=== PATIENT | male | born 1995 | race Caucasian/White ===

== ENCOUNTER 2018-04-16 09:23 | Emergency (ER) | payer SELFPAY ==
[~2018-04-16] VITALS: Ht 167.6 cm; Wt 77.3 kg
[2018-04-16 09:28] VITALS: Ht 167.6 cm; Wt 77.3 kg
[2018-04-16 10:05] LABS: BASOPHILS 0.2 % (0-2); EOSINOPHILS 0.2 % (0-7); HEMOGLOBIN 16.9 g/dL (13.5-17.5); IMMATURE GRANULOCYTES 0.2 % (0-5); LYMPHOCYTES 19.2 % (15-50); MCH 30.4 pg (26.0-34.0); MCHC 36.7 g/dL (31.0-37.0); MCV 82.7 fL (80.0-100.0); MEAN PLATELET VOLUME 10.5 fL (7.4-10.4); MONOCYTES 8.3 % (2-11); NEUTROPHILS 71.9 % (40-80); PLATELET COUNT 260 10x3/uL (130-400); RBC 5.56 10x6/uL (4.20-6.10); RDW 12.1 % (11.5-14.5); WBC 10.1 10x3/uL (4.8-10.8)
[2018-04-16 10:06] LABS: APPEARANCE CLEAR (CLEAR); BILIRUBIN NEGATIVE (NEGATIVE); COLOR YELLOW (YELLOW); GLUCOSE NEGATIVE (NEGATIVE); KETONE LARGE mg/dL (NEGATIVE); NITRITE NEGATIVE (NEGATIVE); PROTEIN NEGATIVE (NEGATIVE); SPECIFIC GRAVITY 1.015 (1.005-1.020); UROBILINOGEN NORMAL (NORMAL)
[2018-04-16 10:12] LABS: UDS - AMPHET POSITIVE QUAL (NEGATIVE); UDS - BARB NEGATIVE QUAL (NEGATIVE); UDS - BENZO NEGATIVE QUAL (NEGATIVE); UDS - COCAINE NEGATIVE QUAL (NEGATIVE); UDS - OPIATE NEGATIVE QUAL (NEGATIVE); UDS - PCP NEGATIVE QUAL (NEGATIVE); UDS - THC NEGATIVE QUAL (NEGATIVE)
[2018-04-16 10:15] LABS: CALC OSMOLALITY 274 mosm/kg (275-300); CALCIUM 9.4 mg/dL (8.5-10.1); CARBON DIOXIDE 17.2 mmol/L (21.0-32.0); CHLORIDE - SERUM 102 mmol/L (98-107); CREATININE - SERUM 1.3 mg/dL (0.6-1.3); GLUCOSE 99 mg/dL (74-106); POTASSIUM - SERUM 3.2 mmol/L (3.5-5.1); SODIUM 138 mmol/L (136-145); TROPONIN-I < 0.017 ng/mL (0.000-0.060); UREA NITROGEN 11 mg/dL (7-18); eGFR NON AFRICAN AMERICAN 75 mL/min (90-120)
[2018-04-16] MEDS ORDERED: METOPROLOL TART50 MG PO (11:11)
[2018-04-16 11:33] VITALS: BP 141/92
== END 2018-04-16 11:35 | disposition home or self-care (01) ==
LOC: D.ER 09:23
PROVIDERS: Emergency Medicine
DX: F41.9 Anxiety disorder, unspecified (principal); F15.10 Other stimulant abuse, uncomplicated; E87.6 Hypokalemia; I20.1 Angina pectoris with documented spasm; F17.200 Nicotine dependence, unspecified, uncomplicated; R00.0 Tachycardia, unspecified

== ENCOUNTER 2018-05-16 13:50 | Emergency (ER) | payer MEDICAID ==
[~2018-05-16] VITALS: Ht 167.6 cm; Wt 77.3 kg
[~2018-05-16 13:50] MED LIST: METOPROLOL TART50 MG PO
[2018-05-16] MEDS ORDERED: KEPPRA750 MG PO (13:54)
[2018-05-16] MEDS ORDERED: FELBATOL PO (13:55)
[2018-05-16] MEDS ORDERED: DILANTIN100 MG PO (13:55)
[2018-05-16] MEDS ORDERED: FLORAJEN3 CAPS460 MG PO (13:56)
[2018-05-16] MEDS ORDERED: MAGNESIUM OXID250 MG PO (13:56)
[2018-05-16] MEDS ORDERED: VITAMIN D10000 UNI1 PO (13:58)
[2018-05-16] MEDS ORDERED: CALCIUM 250+D T1 TAB PO (13:59)
[2018-05-16 14:08] VITALS: Ht 167.6 cm; Wt 77.3 kg
[2018-05-16] MEDS ORDERED: TYLENOL W/CODEI1 TAB PO (15:29)
[2018-05-16] MEDS ORDERED: KEFLEX500 MG PO (15:29)
[2018-05-16] MEDS ORDERED: VOLTAREN75 MG PO (17:25)
[2018-05-16 18:02] VITALS: BP 172/96
== END 2018-05-16 18:00 | disposition home or self-care (01) ==
LOC: D.ER 13:50
DX: S62.630B Displaced fracture of distal phalanx of right index finger, initial encounter for open fracture (principal); W23.0XXA Caught, crushed, jammed, or pinched between moving objects, initial encounter; Y93.89 Activity, other specified; Y92.89 Other specified places as the place of occurrence of the external cause; F17.200 Nicotine dependence, unspecified, uncomplicated